=== PATIENT | female | born 1995 | race Caucasian/White ===

== ENCOUNTER 2018-03-11 05:42 | Day surgery (SDC) | payer OTHER ==
[~2018-03-11] VITALS: Ht 162.6 cm; Wt 115.6 kg
[~2018-03-11 05:42] MED LIST: BACTRIM,SEPT1 TABLET PO; CIPRO500 MG PO; CLINDAMYCIN HC300 MG PO; DIFLUCAN200 MG PO; LO-DOSE ASPIRIN81 M2 PO; MOTRIN600 MG PO; MOTRIN800 MG PO; NOHOMEMEDS; NORCO 5/3251 TABLET PO; ZOFRAN4 MG PO
[2018-03-11 06:37] VITALS: BP 118/64
[2018-03-11] MEDS ORDERED: PERCOCET 5/31 TABLET PO (10:21)
[2018-03-11 10:53] VITALS: BP 111/53
[2018-03-11 12:00] VITALS: BP 114/68
== END 2018-03-11 12:07 | disposition home or self-care (01) ==
LOC: SDC 05:42
PROC: 0JBC0ZZ Excision of Pelvic Region Subcutaneous Tissue and Fascia, Open Approach (ICD-10-PCS; principal; 2018-03-11)
DX: D23.5 Other benign neoplasm of skin of trunk (principal)
CPT/HCPCS: 87641; 88305; J1100; J1170; J1335; J1885; J2250; J2405; J2765; J3010; S0020; S0074

== ENCOUNTER 2018-03-27 22:24 | Emergency (ER) | payer OTHER ==
[~2018-03-27] VITALS: Ht 160 cm; Wt 116.7 kg
[~2018-03-27 22:24] MED LIST changes: +PERCOCET 5/31 TABLET PO
[2018-03-27] MEDS ORDERED: XYLOCAINE VISC100 ML TP (23:44)
[2018-03-27 23:58] VITALS: BP 129/77
== END 2018-03-28 00:09 | disposition home or self-care (01) ==
LOC: EME 22:24
DX: B08.4 Enteroviral vesicular stomatitis with exanthem (principal)
CPT/HCPCS: 99281; 99282